=== PATIENT | male | born 1935 | race African-American/Black ===

== ENCOUNTER → 2019-10-19 | Outpatient (CLI) | payer MEDICARE, MEDICAID | END | disposition home or self-care (01) | LOC: MRI 09:43 | PROVIDERS: ATTEND Neurological Surgery | DX: M47.817 Spondylosis without myelopathy or radiculopathy, lumbosacral region (principal); M48.07 Spinal stenosis, lumbosacral region; M51.27 Other intervertebral disc displacement, lumbosacral region; M71.38 Other bursal cyst, other site; M25.78 Osteophyte, vertebrae | CPT/HCPCS: 72148 ==